=== PATIENT | male | born 1980 | race Caucasian/White ===

== ENCOUNTER 2022-11-08 08:46 | Emergency (ER) | payer SELFPAY ==
[2022-11-08 09:05] VITALS: BP 150/72; PULSE 140; O2SAT 96
--- NOTE | 2022-11-08 09:09 | ED_ITS ---
HPI - Overdose General Chief Complaint: Overdose Stated Complaint: OD, per ems Time Seen by Provider: 11/08/22 08:49 Source: patient, EMS, RN notes reviewed and old records reviewed Mode of arrival: EMS History of Present Illness HPI Narrative: 42-year-old male with a past medical history of substance abuse presenting to the ED via EMS s/p accidental overdose, given 4 mg of intranasal Narcan by FD after being found slumped over against the wall in [facility]. Patient admits to snorting 2 bags of heroin. States has been clean for 2.5-3 months and relapsed today, denies injury/trauma or fall, neck/back pain, headache, SI/HI or otherwise substance/ETOH abuse. MD complaint: accidental overdose Related Data Allergies Allergy/AdvReac Type Severity Reaction Status Date / Time No Known Allergies Allergy Verified 11/08/22 09:12 Review of Systems Review of Systems: Constitutional: No Fever, No Chills, No Fatigue, No Malaise Cardiovascular: No Chest Pain, No SOB Respiratory: No Cough, No Sputum, No Dyspnea Gastrointestinal: No Nausea, No Vomiting, No Diarrhea, No Constipation, No Abdominal pain Musculoskeletal: No joint pain, No Myalgias, No Joint Swelling Skin: No Skin Lesions, No rash Neuro: No Weakness, No Dizziness, No Headache Psych: No Anxiety/Panic, No Depression, No SI/HI/AH/VH, + Social Issues Yes all other systems are reviewed and are negative Constitutional: Constitutional: Reports as per HPI [facility] Past Medical History Attestation statement: The following information was validated with the patient. Source: old records reviewed Social History Social History Advance Directives: No Advance Directives Information Provided: No Physical Exam Vital Signs: Vital Signs: Last Vital Signs Temp 98 F 11/08/22 09:11 Pulse 119 H 11/08/22 09:11 Resp 18 11/08/22 09:11 BP 120/78 11/08/22 09:11 Pulse Ox 98 11/08/22 09:11 O2 Del Method Room Air 11/08/22 09:11 BMI result Body Mass Index 25.8 Const: General: cooperative, healthy appearing, no acute distress and alert Orientation/consciousness: patient oriented x3 Limitations: no limitations HEENT: Head: Yes normal to inspection and Yes atraumatic Ears: hearing grossly normal bilaterally General nose exam: Normal external nose present Face and sinus: Yes normal facial exam Eyes: General: appearance normal, both eyes and all related structures EOM: EOMs intact bilaterally Neck: Neck: Yes normal visual inspection and Yes no meningeal signs Resp: Effort & Inspection: normal respiratory effort and no respiratory distress Auscultation: clear to auscultation bilaterally Cardio: Rate: regular rate Heart sounds: S1 normal heart sound present and S2 normal heart sound present GI: Inspection: Yes normal to inspection Palpation (GI): Soft to palpation, nontender, no guarding and not rigid Skin: Rashes: no rashes Wounds: no wounds Neuro: General: patient oriented x3, tone normal and no meningeal signs Cranial nerves: Yes CN's II-XII intact bilaterally Gait exam (Neuro): Normal gait present Extrem: General: Yes normal to inspection Course Course Course Narrative: [id number]--patient has remained awake and alert signs ED arrival, sitting at the end a bed requesting discharge. Results discussed with patient including worrisome signs and symptoms and strict return precautions, and when to return to the emergency department. They verbalized understanding and feel safe for discharge at this time. Medical Decision Making Medical Decision Making [facility] [place] Narrative: 42-year-old male with a past medical history of substance abuse presenting to the ED via EMS s/p accidental overdose, given 4 mg of intranasal Narcan by FD after being found slumped over [facility]. On exam tachycardic, NAD, awake and alert at this time requesting discharge. Denies SI/HI. Is not interested in detox or speaking with recovery at this time. No evidence of trauma Plan: Observe and re-evaluate, Narcan to go home, SUDE eval Please refer to course for remaining clinical decision making, interpretation of labs/imaging results, and discussions with consultants and/or family members. Differential Diagnosis Differential Diagnoses: The differential diagnosis associated with the presentation includes As above Admission/Observation Consideration of admission/observation: Escalation of care including admission/observation considered Consult Healthcare Provider Management of the patient was discussed with: Behavioral [facility] Provider Lab Data [facility] [place] Lab Attestation statement: I reviewed the patient's lab results. Radiology Impression Discussion of test interpretation with radiology: I have reviewed the radiologist's reading. Independent Historian Clinical information obtained from an independent historian. History obtained from or confirmed by: EMS External Record Review External record reviewed: Inpatient record, Office record, Outpatient record, Prior outpatient labs, Prior outpatient radiology, Primary care record and Outside ED record Tests considered The following testing was considered but not selected: As above Social Determinants Patient?s care significantly limited by Social Determinants of Health including: Inadequate housing, Low income, Alcoholism and drug addiction in family and Problems related to primary support group Discharge Plan Discharge Clinical Impression: Drug overdose Patient Disposition: Home, Self-Care Instructions: Adult Overdose (ED) Additional Instructions: You almost today Always have Narcan on you Avoid drug and alcohol use this can kill you Consider detox/recovery Referrals: [facility] [Provider Group] [facility] [Outside]
[2022-11-08 09:11] VITALS: BP 120/78; PULSE 119; RESP 18; TEMP 36.6; O2SAT 98; BMI 25.8
--- NOTE | 2022-11-08 10:31 | PC.NURSE ---
pt left unit without instructions. iv removed previously. pt left without take home narcan
--- NOTE | 2022-11-08 10:54 | MHC.RECOVSUP ---
Attempted to meet with pt in ED3 who is here for an OD to complete SUDE, however pt walked out before T/W was able to meet with him.
== END 2022-11-08 10:32 | disposition home or self-care (01) ==
PROVIDERS: Emergency Provider Emergency Medicine
DX: T40.1X1A Poisoning by heroin, accidental (unintentional), initial encounter (principal); F19.10 Other psychoactive substance abuse, uncomplicated; R00.0 Tachycardia, unspecified; Y92.9 Unspecified place or not applicable
CPT/HCPCS: 99284